=== PATIENT | male | born 1985 | race Caucasian/White ===

== ENCOUNTER 2022-03-28 08:01 | Emergency (ER) | payer MEDICAID ==
[~2022-03-28] VITALS: Ht 177.8 cm; Wt 84.8 kg
[2022-03-28 08:11] VITALS: BP 125/70
--- NOTE | 2022-03-28 08:15 | NUR ---
36M PRESENTS TO ED WITH C/O COUGH AND CONGESTION X 2WEEKS. PT REPORTS TESTING POSITIVE FOR COVID 2 WEEKS AGO, ALL OTHER SYMPTOMS HAVE SUBSIDED, ONLY COUGH AND CONGESTION REMAIN. PT DENIES PAIN, SOB, FEVERS, CHILLS, N/V/D. PT REPORTS TAKING NYQUIL WITH TEMPORARY RELIEF, DENIES TAKING MEDS TODAY.
--- NOTE | 2022-03-28 08:20 | NUR ---
SWAB COLLECTED AND HANDED TO SR [employer].
[2022-03-28] MEDS ORDERED: BENZ200C4 PO (08:53)
[2022-03-28] MEDS ORDERED: ALBU0.0912 INH (08:53)
--- NOTE | 2022-03-28 09:40 | NUR ---
Patient discharged with v/s stable. Written and verbal after care instructions given and explained. Patient alert, oriented and verbalized understanding of instructions. Ambulatory with steady gait. All questions addressed prior to discharge. ID band removed. Patient advised to follow up with PMD. Rx of ALBUTEROL SULFATE AND BENZONATATE given. Patient educated on indication of medication including possible reaction and side effects. Opportunity to ask questions provided and answered.
== END 2022-03-28 09:40 | disposition home or self-care (01) ==
LOC: MED 08:01
DX: U07.1 COVID-19 (principal); J06.9 Acute upper respiratory infection, unspecified; Z79.899 Other long term (current) drug therapy
CPT/HCPCS: 99283